=== PATIENT | male | born 1985 | race Caucasian/White ===

== ENCOUNTER 2016-12-02 20:11 | Emergency (ER) | payer SELFPAY ==
[~2016-12-02] VITALS: Ht 175.3 cm; Wt 77.0 kg
[2016-12-02 20:12] VITALS: BP 131/89; PULSE 70; RESP 16; TEMP 98.6; O2SAT 99
--- NOTE | 2016-12-02 20:54 | PD ---
HPI Chief Complaint: Laceration/Skin Injury Time Seen by Provider: 20:49 Travel History International Travel<30 days: No Contact w/Intl Traveler<30days: No Traveled to known affect area: No History of Present Illness HPI 31-year-old [id number] white male presents emergency Department with a laceration to his left thumb from a chainsaw which occurred around 12:00 this afternoon. He states that the wound will not stay close. He has tried Krazy glue and multiple other things. He is requesting sutures. He is up-to-date with immunizations. He denies any numbness, tingling or weakness PFS Past Medical History Medical History: Denies Significant Hx Tetanus Vaccination: < 5 Years Past Surgical History Surgical History: No Previous Surgery Social History Alcohol Use: Yes Tobacco Use: No Allergies-Medications (Allergen,Severity, Reaction): Coded Allergies: No Known Allergies (Unverified , 12/02/16) Review of Systems Except as stated in HPI: all other systems reviewed are Neg Physical Exam Narrative GENERAL: This is a well-nourished, well-developed patient, in no apparent distress. SKIN: No rashes, ecchymoses or lesions. Warm and dry. HEAD: Atraumatic. Normocephalic. EYES: PERRL, EOMI, no discharge or injection. No scleral icterus. EARS: Clear NOSE: Nasal turbinates appear normal. THROAT: Mucosa pink and moist. Airway patent. NECK: Trachea midline. supple, moves head freely. LUNGS: Clear to auscultation. CV: Regular in rhythm. ABDOMEN: Soft nontender. EXT: No clubbing cyanosis or edema. Patient has a 2 cm laceration to the ulnar aspect of the proximal phalanx of the left thumb. There is some superficial debris area the wound goes into subcutaneous tissues but not into the tendon or joint. I can see the base of the wound.. There is no deep debris. Patient to extend and flex his finger freely. Good Refill and sensation. Data Data Last Documented VS Vital Signs Date Time Temp Pulse Resp B/P Pulse Ox O2 Delivery O2 Flow Rate FiO2 12/02/16 20:12 98.6 70 16 131/89 99 Room Air MDM Medical Decision Making Medical Screen Exam Complete: Yes Emergency Medical Condition: Yes Medical Record Reviewed: Yes Differential Diagnosis MDM: High Differential diagnoses: Fracture, sprain, strain, dislocation, contusion, neurovascular injury Narrative Course Patient is advised that he is at much higher risk for potential infection with wound closure. The patient verbally excepts the risk. We will close the wound loosely with 2 sutures and start him on Keflex. Patient is given Keflex 500 mg by mouth now. His wound is closed with sutures. Procedures Procedure Narrative LACERATION LOCATION: Left thumb LENGTH: 2 cm NUMBER OF STITCHES/STIVEN: 2 REPAIR: The area of the laceration was prepped with Betadine and sterilely draped. The laceration was infiltrated with 1% lidocaine. Superficial dirt debris is on the way with saline. The wound was copiously irrigated a second time and explored without evidence of foreign body, tendon injury or neurovascular injury. The wound was closed using 4-0 nylon. This was a single layer repair. A sterile dressing was applied. The patient was advised to keep the dressing clean and dry. Patient tolerated the procedure well. Diagnosis Primary Impression: Laceration of left thumb with delay in treatment Patient Instructions: General Instructions Additional Instructions: Rest. Elevation. Keep clean and dry. Daily wound care with soap, water, Neosporin. Tylenol and Advil for pain. Keflex. Monitored very closely for potential infection. This would include increasing pain, redness, drainage or limited movement of the finger. If this occurs immediately be seen immediately. Recheck in the next 2-3 days by a primary care doctor. Sutures out in 14 days. Return to the ER for any problems. Med/Other Pt SpecificInfo: Prescription(s) given, Wound Care Disposition: 01 DISCHARGE HOME Condition: Stable Deonte Richey Dec 02, 2016 20:54
[2016-12-02] MEDS ORDERED: CEPH500C PO (20:55)
[2016-12-02] MEDS ORDERED: CEPHALEXIN MONOHYDRATE 500 MG CAP PO ONE (21:00)
== END 2016-12-02 21:26 | disposition home or self-care (01) ==
LOC: NEPK 20:11
DX: S61.012A Laceration without foreign body of left thumb without damage to nail, initial encounter (principal); W29.3XXA Contact with powered garden and outdoor hand tools and machinery, initial encounter
CPT/HCPCS: 12001